=== PATIENT | male | born 1960 | race Caucasian/White ===

== ENCOUNTER 2022-07-08 23:30 | Emergency (ER) | payer MEDICAID, OTHER ==
[~2022-07-08] VITALS: Ht 152.4 cm; Wt 95.3 kg
--- NOTE | 2022-07-09 01:53 | NUR ---
BIBS FOR C/O EPISDOE OF SLURRED SPEECH AROUND 8 PM AND BLURRED VISION FOR THE PAST WEEK. + DIZZINESS AND UNSTABLE GAITS. UPON ARRIVAL PT A/OX4; NO SLURRED SPEECH NOTED. TOLERATING R/A WELL WITH NO RESP DISTRESS. SAFETY MEASURES IN PLACE. CONNECTED PT TO POX AND MONITOR
--- NOTE | 2022-07-09 02:03 | NUR ---
DR. YURIY HUBBARD AT PT'S BEDSIDE FOR EVAL
--- NOTE | 2022-07-09 02:04 | NUR ---
IV L HAND #20G S/L BLOOD AND COVID ANTIGEN SWAB COLLECTED AND SENT TO LAB
--- NOTE | 2022-07-09 02:09 | NUR ---
PT TAKEN TO CT [facility]IA [facility]
[2022-07-09 02:18] LABS: BASOPHILS # (AUTO) 0.1 K/uL (0.0-0.2); BASOPHILS % (AUTO) 0.8 % (0.0-2.0); EOSINOPHILS % (AUTO) 1.8 % (0.0-6.0); HEMATOCRIT 45 % (39-51); LYMPHOCYTES # (AUTO) 1.8 K/uL (0.8-4.8); LYMPHOCYTES % (AUTO) 21.2 % (20.0-44.0); MEAN CORPUSCULAR HGB CONC 34 g/dl (31.0-36.0); MEAN CORPUSCULAR VOLUME 93 fL (80-96); MONOCYTES # (AUTO) 0.9 K/uL (0.1-1.30); MONOCYTES % (AUTO) 10.8 % (2.0-12.0); NEUTROPHILS # (AUTO) 5.7 K/uL (1.8-8.9); NEUTROPHILS % (AUTO) 65.4 % (43.0-81.0); PLATELET COUNT (AUTO) 166 K/uL (150-450); RED BLOOD CELL COUNT(AUTO) 4.78 MIL/uL (4.5-6.0); WHITE BLOOD COUNT (AUTO) 8.7 K/uL (4.3-11.0)
[2022-07-09 02:28] LABS: CARBON DIOXIDE 28 mmol/L (21-32); CHLORIDE 108 mmol/L (98-107); GLUCOSE 93 mg/dL (74-106); POTASSIUM 3.9 mmol/L (3.5-5.1); SODIUM SERUM 142 mmol/L (136-145); UREA NITROGEN, BLOOD 24 mg/dL (7-18)
[2022-07-09 02:34] LABS: ALANINE AMINOTRANSFERASE 23 U/L (12-78); ALBUMIN 3.9 g/dL (3.4-5.0); ALKALINE PHOSPHATASE 103 U/L (46-116); ASPARTATE AMINOTRANSFERASE 18 U/L (15-37); BILIRUBIN,DIRECT 0.1 mg/dL (0.0-0.2); BILIRUBIN,TOTAL 0.4 mg/dL (0.2-1.0); TOTAL PROTEIN, SERUM 7.4 g/dL (6.4-8.2)
--- NOTE | 2022-07-09 02:39 | NUR ---
URINE COLLECTED AND SENT TO LAB
[2022-07-09 02:54] LABS: BILIRUBIN,URINE NEGATIVE (NEGATIVE); COLOR,URINE YELLOW (YELLOW); LEUKOCYTE ESTERASE ,URINE NEGATIVE (NEGATIVE); NITRITE, URINE NEGATIVE (NEGATIVE); PH,URINE 5.5 (5.0-8.0); PROTEIN,URINE NEGATIVE (NEGATIVE); UGLUCOSE NEGATIVE (NEGATIVE); UROBILINOGEN,URINE 0.2 EU/dL (0.2)
--- NOTE | 2022-07-09 03:13 | NUR ---
RECEIVED A CALL FROM [facility]. UPDATES GIVEN. PATIENT WILL BE TRANSFERRING TO [facility]. BED IS AVAILABLE BUT SHE WILL TRY TO CONTACT DR LEE FOR PEER TO PEER AND THEN SHE WILL GET THE BED # AND PHONE NUMBER WELL.
[2022-07-09 03:14] LABS: WBC,URINE 0-2 /HPF (0-3)
[2022-07-09 03:16] LABS: BACTERIA,URINE Rare /HPF (None Seen); SQUAMOUS EPITHELIAL CELL,UR Rare /HPF (None Seen)
[2022-07-09] MEDS ORDERED: IBUPROFEN 400 MG TABLET ONE (03:17)
[2022-07-09] MEDS ORDERED: IBUPROFEN 400 MG TABLET PO ONE (03:30)
--- NOTE | 2022-07-09 04:25 | NUR ---
PT ACCEPTED TO [facility] MS /TELE ROOM [address] BIGGS CALL FOR REPORT [phone] CM WILL CALL BACK FOR ALS FOR TRANSPORTATION
--- NOTE | 2022-07-09 04:35 | NUR ---
[address] [facility] [place] [employer] T[facility]
--- NOTE | 2022-07-09 05:02 | NUR ---
REPORT GIVEN TO [facility] FOR [facility]
--- NOTE | 2022-07-09 10:01 | NUR ---
transport at bedside for pickup
--- NOTE | 2022-07-09 10:06 | NUR ---
Patient transferred to hospital via stretcher accompanied by 2 district branch manager. Patient stable at time of transfer.
[2022-07-09 10:08] VITALS: BP 129/79
== END 2022-07-09 10:09 | disposition short-term general hospital (02) ==
LOC: ER 23:32
DX: G45.9 Transient cerebral ischemic attack, unspecified (principal); Z20.822 Contact with and (suspected) exposure to COVID-19; Z60.2 Problems related to living alone
CPT/HCPCS: 99291; 70450; 71045; 87426; 93005; 85025; 80048; 80076; 36415; 84484; 85730; 80307; 81001; C9803